=== PATIENT | male | born 1970 | race Two or more races ===

== ENCOUNTER 2017-12-14 19:30 | Emergency (ER) | payer OTHER ==
[~2017-12-14] VITALS: Ht 193 cm; Wt 99.8 kg
[2017-12-14] MEDS ORDERED: IV NS 0.9% 1,000 ML BAG IV ONE (20:00)
[2017-12-14 20:30] LABS: EOSINOPHILS % (AUTO) 0.3 % (0.0-6.0); LYMPHOCYTES # (AUTO) 0.8 /CMM (0.8-4.8); LYMPHOCYTES % (AUTO) 7.8 % (20.0-44.0)
[2017-12-14] MEDS ORDERED: LORAZEPAM INJ 2 MG/ML VIAL ONE (20:34)
[2017-12-14] MEDS: LORAZEPAM INJ 2 MG/ML VIAL IV ONE ×2 (20:35→20:50)
[2017-12-14 20:37] LABS: BASOPHILS # (AUTO) 0.1 /CMM (0.0-0.2); BASOPHILS % (AUTO) 0.9 % (0.0-2.0); HEMATOCRIT 52 % (39-51); HEMOGLOBIN 16.9 g/dL (13.5-17.5); MEAN CORPUSCULAR HGB CONC 32 g/dl (31.0-36.0); MEAN CORPUSCULAR VOLUME 80 fL (80-96); MONOCYTES # (AUTO) 0.5 /CMM (0.1-1.30); MONOCYTES % (AUTO) 4.8 % (2.0-12.0); NEUTROPHILS # (AUTO) 8.9 /CMM (1.8-8.9); NEUTROPHILS % (AUTO) 86.2 % (43.0-81.0); PLATELET COUNT (AUTO) 107 /CMM (150-450); RDW COEFFICIENT OF VARIATION 13.4 (11.5-15.0); WHITE BLOOD COUNT (AUTO) 10.3 K/uL (4.3-11.0)
[2017-12-14 20:41] LABS: CALCIUM, SERUM 8.3 mg/dL (8.5-10.1); CREATININE 1.2 mg/dL (0.6-1.3); POTASSIUM 4.7 mmol/L (3.5-5.1)
[2017-12-14 20:48] LABS: ALBUMIN 3.2 g/dL (3.4-5.0); BILIRUBIN,DIRECT 0.4 mg/dL (0.0-0.2); BILIRUBIN,TOTAL 1.1 mg/dL (0.2-1.0); TOTAL PROTEIN, SERUM 8.7 g/dL (6.4-8.2)
[2017-12-15] MEDS ORDERED: BACITRACIN ZINC OINT PACKET 1 EA PACKET TP ONE ×2 (00:30→00:33)
[2017-12-15] MEDS ORDERED: LORAZEPAM INJ 2 MG/ML VIAL IV ONE (00:30)
[2017-12-15] MEDS ORDERED: LORAZEPAM INJ 2 MG/ML VIAL ONE (00:44)
--- NOTE | 2017-12-15 02:32 | NUR ---
pt ok to discharge per kishore santiago. IV removed. Catheter intact and site benign. Pressure and 4x4 applied to site. No bleeding noted.Patient discharged to home in stable condition. Written and verbal after care instructions given. Patient verbalizes understanding of instruction.Patient is awake and alert to self, day, and place. pt ambulatory with a steady gait
[2017-12-15 02:34] VITALS: BP 143/88
== END 2017-12-15 02:34 | disposition home or self-care (01) ==
LOC: ER 19:32
DX: L03.115 Cellulitis of right lower limb (principal); K76.0 Fatty (change of) liver, not elsewhere classified; F10.129 Alcohol abuse with intoxication, unspecified; R56.9 Unspecified convulsions; R41.82 Altered mental status, unspecified; Y90.8 Blood alcohol level of 240 mg/100 ml or more
CPT/HCPCS: 36415; 70450; 76705; 80048; 80076; 85025; 85610; 93005; 96361; 96376; 96374; 99285; A4606; G0480; J2060 ×2; J7030; Z7610

== ENCOUNTER 2019-02-02 14:15 | Outpatient (CLI) | payer OTHER ==
[2019-02-02] MEDS ORDERED: DEXAMETHASONE SOD PHOSPHATE 10 MG/ML VIAL IJ ONE (16:00)
== END 2019-02-02 23:59 | disposition home or self-care (01) ==
LOC: WOU 14:15
PROVIDERS: ATTEND Podiatrist Foot & Ankle Surgery
DX: M65.872 Other synovitis and tenosynovitis, left ankle and foot (principal); M65.871 Other synovitis and tenosynovitis, right ankle and foot; E11.610 Type 2 diabetes mellitus with diabetic neuropathic arthropathy; Z79.84 Long term (current) use of oral hypoglycemic drugs; R60.0 Localized edema; R26.9 Unspecified abnormalities of gait and mobility
CPT/HCPCS: 20550 ×2; J1100; J3490; G0463

== ENCOUNTER 2019-03-02 13:20 | Outpatient (CLI) | payer OTHER ==
[2019-03-02] MEDS ORDERED: DEXAMETHASONE SOD PHOSPHATE 4 MG/ML VIAL IV ONE (15:30)
== END 2019-03-02 23:59 | disposition home or self-care (01) ==
LOC: WOU 13:20
PROVIDERS: ATTEND Podiatrist Foot & Ankle Surgery
PROC: 3E0U33Z Introduction of Anti-inflammatory into Joints, Percutaneous Approach (ICD-10-PCS; principal; 2019-03-02)
PROC: 3E0U3BZ Introduction of Anesthetic Agent into Joints, Percutaneous Approach (ICD-10-PCS; principal; 2019-03-02)
DX: E11.610 Type 2 diabetes mellitus with diabetic neuropathic arthropathy (principal); Z79.84 Long term (current) use of oral hypoglycemic drugs; M21.172 Varus deformity, not elsewhere classified, left ankle; M21.171 Varus deformity, not elsewhere classified, right ankle; R60.0 Localized edema; G47.30 Sleep apnea, unspecified
CPT/HCPCS: 20600; 82962; J1100; J3490

== ENCOUNTER 2019-03-29 13:15 | Outpatient (CLI) | payer OTHER ==
[2019-03-30] MEDS ORDERED: BUPR100T13 PO (13:10)
[2019-03-30] MEDS ORDERED: DOXA2TAB2 PO (13:10)
[2019-03-30] MEDS ORDERED: FLUT16SP (13:10)
[2019-03-30] MEDS ORDERED: ROFL500T PO (13:10)
[2019-03-30] MEDS ORDERED: AZEL205. (13:10)
[2019-03-30] MEDS ORDERED: HYDR-3980 PO (13:10)
[2019-03-30] MEDS ORDERED: D-AM10TA2 PO (13:10)
[2019-03-30] MEDS ORDERED: QUET25TA PO (13:10)
[2019-03-30] MEDS ORDERED: METF-442 PO (13:10)
[2019-03-30] MEDS ORDERED: TIOT4MIS2 INH (13:10)
[2019-03-30] MEDS ORDERED: FLUT1DIS3 INH (13:10)
[2019-03-30] MEDS ORDERED: MONT10TA22 PO (13:10)
[2019-03-30] MEDS ORDERED: ALEN10TA26 PO (13:10)
[2019-03-30] MEDS ORDERED: ALBU8.5H8 IH (13:10)
[2019-03-30] MEDS ORDERED: FERR325T24 PO (13:10)
[2019-03-30] MEDS ORDERED: TADA20TA43 PO (13:10)
[2019-03-30] MEDS ORDERED: LEVO25TA9 PO (13:10)
[2019-03-30] MEDS ORDERED: GABA-786 PO (13:10)
[2019-03-30] MEDS ORDERED: D AM PO (13:10)
[2019-03-30] MEDS ORDERED: ALUM35SO TD (13:10)
[2019-03-30] MEDS ORDERED: DEXL60CA3 PO (13:10)
[2019-03-30] MEDS ORDERED: CARB1TAB39 PO (13:10)
== END 2019-03-29 23:59 | disposition home or self-care (01) ==
LOC: WOU 13:15
PROVIDERS: ATTEND Podiatrist Foot & Ankle Surgery
DX: E11.610 Type 2 diabetes mellitus with diabetic neuropathic arthropathy (principal); E11.42 Type 2 diabetes mellitus with diabetic polyneuropathy; Z79.84 Long term (current) use of oral hypoglycemic drugs; L89.896 Pressure-induced deep tissue damage of other site; L03.115 Cellulitis of right lower limb; Z79.899 Other long term (current) drug therapy; G47.30 Sleep apnea, unspecified
CPT/HCPCS: G0463

== ENCOUNTER 2019-03-30 11:27 | Inpatient (IN) | payer OTHER ==
[~2019-03-30] VITALS: Ht 190.5 cm; Wt 124.7 kg
--- NOTE | 2019-03-30 11:30 | NUR ---
sent by PMD due to right foot cellulitis/abscess, pt awake, alert, -sob, nad noted, vss, pending md naqvi
[2019-03-30] MEDS ORDERED: IV NS 0.9% 500 ML BAG IV ONE (12:00)
--- NOTE | 2019-03-30 13:04 | NUR ---
CALLED [facility], PAGED HARJINDER
[2019-03-30] MEDS ORDERED: BUPR100T13 PO (13:10)
[2019-03-30] MEDS ORDERED: ROFL500T PO (13:10)
[2019-03-30] MEDS ORDERED: LEVO25TA9 PO (13:10)
[2019-03-30] MEDS ORDERED: MONT10TA22 PO (13:10)
[2019-03-30] MEDS ORDERED: HYDR-3980 PO (13:10)
[2019-03-30] MEDS ORDERED: D-AM10TA2 PO (13:10)
[2019-03-30] MEDS ORDERED: CARB1TAB39 PO (13:10)
[2019-03-30] MEDS ORDERED: QUET25TA PO (13:10)
[2019-03-30] MEDS ORDERED: D AM PO (13:10)
[2019-03-30] MEDS ORDERED: DOXA2TAB2 PO (13:10)
[2019-03-30] MEDS ORDERED: ALEN10TA26 PO (13:10)
[2019-03-30] MEDS ORDERED: TADA20TA43 PO (13:10)
[2019-03-30] MEDS ORDERED: FLUT1DIS3 INH (13:10)
[2019-03-30] MEDS ORDERED: ALUM35SO TD (13:10)
[2019-03-30] MEDS ORDERED: DEXL60CA3 PO (13:10)
[2019-03-30] MEDS ORDERED: GABA-786 PO (13:10)
[2019-03-30] MEDS ORDERED: FERR325T24 PO (13:10)
[2019-03-30] MEDS ORDERED: FLUT16SP (13:10)
[2019-03-30] MEDS ORDERED: ALBU8.5H8 IH (13:10)
[2019-03-30] MEDS ORDERED: TIOT4MIS2 INH (13:10)
[2019-03-30] MEDS ORDERED: METF-442 PO (13:10)
[2019-03-30] MEDS ORDERED: AZEL205. (13:10)
[2019-03-30 13:20] LABS: BASOPHILS # (AUTO) 0.1 /CMM (0.0-0.2); BASOPHILS % (AUTO) 1.2 % (0.0-2.0); EOSINOPHILS % (AUTO) 1.3 % (0.0-6.0); HEMATOCRIT 51 % (39-51); HEMOGLOBIN 16.8 g/dL (13.5-17.5); LYMPHOCYTES # (AUTO) 1.2 /CMM (0.8-4.8); LYMPHOCYTES % (AUTO) 14.8 % (20.0-44.0); MEAN CORPUSCULAR HGB CONC 33 g/dl (31.0-36.0); MEAN CORPUSCULAR VOLUME 84 fL (80-96); MONOCYTES # (AUTO) 0.6 /CMM (0.1-1.30); NEUTROPHILS # (AUTO) 6.2 /CMM (1.8-8.9); NEUTROPHILS % (AUTO) 75.7 % (43.0-81.0); PLATELET COUNT (AUTO) 195 /CMM (150-450); RED BLOOD CELL COUNT(AUTO) 6.11 MIL/uL (4.5-6.0); WHITE BLOOD COUNT (AUTO) 8.1 K/uL (4.3-11.0)
[2019-03-30 13:38] LABS: CALCIUM, SERUM 9.2 mg/dL (8.5-10.1); CREATININE 1.4 mg/dL (0.6-1.3)
[2019-03-30 13:40] LABS: POTASSIUM 4.5 mmol/L (3.5-5.1)
[2019-03-30 13:42] LABS: ALBUMIN 3.9 g/dL (3.4-5.0); BILIRUBIN,DIRECT 0.1 mg/dL (0.0-0.2); BILIRUBIN,TOTAL 0.4 mg/dL (0.2-1.0); TOTAL PROTEIN, SERUM 7.1 g/dL (6.4-8.2)
--- NOTE | 2019-03-30 14:35 | NUR ---
report given herbie erwin transported to 3rd floor
--- NOTE | 2019-03-30 14:40 | NUR ---
RECEIEVED PATIENT FROM ER VIA GURNEY. PATIENT IS A/OX4, ABLE TO MAKE NEEDS KNOWN. AMBULATORY. NOT IN ANY FORM OF DISTRESS. NO SOB. DENIED PAIN OR DISCOMFORT AT THIS TIME. IV ACCESS INTACT AND PATENT. BELONGINGS CHECKED BY ZACK VALERO AND NOTED IT ON THE CHECKLIST. SITUATED PATIENT IN THE ROOM. INSTRUCTED ON HOW TO USE THE CALL LIGHT AND CALL FOR ASSISTANCE. REFUSED TO CHANGE TO HOSPITAL GOWN AND REFUSED SKIN ASSESSMENT AT THIS TIME. PER PATIENT, "I REALLY DONT HAVE ANY OPEN WOUNDS, I CAME HERE BECAUSE THE WOUND CLINIC TOLD ME TO GO HERE TO CHECK IF MY FEET HAS AN INFECTION.", " YOU CAN CHECK IT LATER WHEN I'M READY TO CHANGE TO HOSPITAL GOWN.". KEPT PATIENT SAFE AND COMFORTABLE. BED IN LOW/LOCKED PSOITION, SIDERAILS UPX2,CALL LIGHT IN REACH. WILL CONT TO MONIOTR ACCORDINGLY
[2019-03-30] MEDS ORDERED: DEXTROSE 50%-WATER 50 ML DISP.SYRIN IV PRN (15:30)
[2019-03-30] MEDS ORDERED: TADALAFIL 20 MG PO PRN (15:30)
[2019-03-30] MEDS ORDERED: *INSULIN REGULAR(HUMULIN R)HUM 100 UNIT/ML VIAL SQ PRN (15:30)
[2019-03-30] MEDS ORDERED: FLUTICASONE PROPIONATE 16 GM BOTTLE NS PRN (15:30)
[2019-03-30] MEDS ORDERED: HYDROCODONE/APAP 10/325MG 1 EA TABLET PO PRN (15:30)
[2019-03-30 15:59] LABS: MAGNESIUM 1.7 mg/dL (1.8-2.4); PHOSPHORUS 2.6 mg/dL (2.5-4.9)
[2019-03-30 16:00] VITALS: BP 160/111
--- NOTE | 2019-03-30 16:00 | NUR ---
rn notes patient asking for 2 sandwiches. explained to patient that he is on diabetic diet and food is limited for [facility] diet. patient was furious and was thinking of leaving AMA because of the limitation of food. explained to the patient that i have to ask the doctor if he can give you a regular diet. patient calmed down and said "ok please tell him". will notify doctor ashish. 1 egg sandwich and a diet soda was given.
--- NOTE | 2019-03-30 16:42 | NUR ---
rn notes Dr hinojosa on the unit and address patient's request to have a regular diet. Per Dr Hinojosa, "yeah just give him regular diet, he's a big melody.". Orders noted and will carry out.
[2019-03-30] MEDS ORDERED: AZELASTINE NASAL SPRAY 30 ML BOTTLE NS PRN (17:00)
[2019-03-30] MEDS: buPROPion 100 MG TABLET PO SCH (17:16)
[2019-03-30] MEDS: CARBIDOPA/LEVA CR 25/100MG 1 TAB.SA PO SCH (17:17)
[2019-03-30] MEDS: MONTELUKAST SODIUM (10MG) 10 MG TABLET PO SCH (17:17)
[2019-03-30] MEDS: BLOOD SUGAR DIAGNOSTIC 1 EACH STRIP VI SCH ×2 (17:18→22:09)
[2019-03-30] MEDS ORDERED: ALBUTEROL FS 2.5 MG/0.5 ML VIAL.NEB NEB PRN (19:30)
--- NOTE | 2019-03-30 19:30 | NUR ---
RN CLOSING NOTES PATIENT IN STABLE CONDITION. ALL NEEDS ATTENDED AND PROVIDED. ALL DUE MEDS GIVEN ORDERED. KEPT PATIENT SAFE AND COMFORTABLE. BED IN LOW/LOCKED POSITION, SIDERAILS UPX2,C ALL LIGHT IN REACH. ENDORSED TO NIGHT RN FOR PONCHO.
--- NOTE | 2019-03-30 19:45 | NUR ---
MS RN OPENING NOTES RECEIVED PATIENT FROM MORNING SHIFT ALERT AND ORIENTED X 3. VERBALLY RESPONSIVE AND ABLE TO FOLLOW DIRECTIONS. BREATHING REGULAR AND UNLABORED ON ROOM AIR. RIGHT FOREARM G20 IV LINE PATENT AND INTACT, FLUSHING WELL WITH NO BLEEDING OR S/S OF INFECTION/INFILTRATION NOTED. REFUSED BODY ASSESSMENT FOR NOW PER HIM HE'LL CHANGE FOR A HOSPITAL GOWN LATER. NO COMPLAINTS OF PAIN/DISCOMFORT REPORTED OF THE TIME. BED LOW AND LOCKED ON SEMI FOWLERS POSITION. CALL LIGHT IN REACH. WILL CONTINUE TO MONITOR.
[2019-03-30 20:00] VITALS: BP 151/99
[2019-03-30] MEDS ORDERED: CLINDAMYCIN 600 MG in IV NS 0.9% 50 ML IV SCH (21:00)
[2019-03-30] MEDS: CLINDAMYCIN 600 MG in IV D5W 50 ML IV SCH (21:01)
[2019-03-30] MEDS: QUETIAPINE FUMARATE 25 MG TABLET PO PRN (21:58)
[2019-03-30 22:00] VITALS: BP 151/99
--- NOTE | 2019-03-30 23:22 | NUR ---
RT NOTE PATIENT ATTEMPTED TO WEAR CPAP. PATIENT VERBALLY REFUSING TO KEEP CPAP ON. PRIMARY NURSE NOTIFIED AND AWARE. NO SIGNS OF RESPIRATORY DISTRESS NOTED. SPO2 96%.
--- NOTE | 2019-03-30 23:30 | NUR ---
MS RN NOTES REFUSED CPAP TREATMENT PER THE PATIENT ITS UNCOMFORTABLE. RISK AND BENEFITS EXPLAINED. PUT ON OXYGEN AT 2L/MIN VIA NASAL CANNULA INSTEAD. LATEST SPO2 96%. WILL CONTINUE TO MONITOR.
[2019-03-31] MEDS: HYDROCODONE/APAP 10/325MG 1 EA TABLET PO PRN ×3 (01:50→18:11)
--- NOTE | 2019-03-31 02:00 | NUR ---
MS RN NOTES COMPLAINED OF 7/10 RIGHT FOOT PAIN. NORCO 10/325 TAB GIVEN BY MOUTH. NON-PHARMACOLOGICAL INTERVENTIONS PROVIDED. VITAL SIGNS WNL. WILL CONTINUE TO MONITOR.
[2019-03-31] MEDS: CLINDAMYCIN 600 MG in IV D5W 50 ML IV SCH ×3 (04:54→20:59)
--- NOTE | 2019-03-31 06:40 | NUR ---
MS RN CLOSING NOTES PATIENT IN BED ALERT AND ORIENTED X 3. VERBALLY RESPONSIVE AND ABLE TO FOLLOW DIRECTIONS. BREATHING REGULAR AND UNLABORED ON OXYGEN AT 2L/min VIA NASAL CANNULA. RIGHT FOREARM G20 IV LINE PATENT AND FLUSHING WELL. NO COMPLAINTS OF PAIN/DISCOMFORT REPORTED OF THE TIME. BED LOW AND LOCKED ON SEMI FOWLERS POSITION. CALL LIGHT IN REACH. WILL ENDORSE TO MORNING SHIFT FOR PONCHO.
[2019-03-31] MEDS: BLOOD SUGAR DIAGNOSTIC 1 EACH STRIP VI SCH ×4 (07:01→22:17)
[2019-03-31] MEDS: INSULIN REGULAR, HUMAN 100 UNIT/ML 3 ML VIAL SQ PRN (07:02)
--- NOTE | 2019-03-31 07:35 | NUR ---
MS/RN NOTE THE PATIENT IS RECEIVED IN BED. ALERT AND ORIENTED X4. DENIES PAIN. IN ROOM AIR AND DENIES SOB. RESPIRATION REGULAR AND UNLABORED. THE PATIENT IN NO APPARENT DISTRESS. RIGHT FOREARM G 20 PATENT AND SALINE LOCKED. BED LOW AND LOCKED. SIDE RAILS UP X2. CALL LIGHT WITHIN REACH. WILL CONTINUE TO MONITOR.
[2019-03-31 08:00] VITALS: BP_SYST 125; BP_SYST 158; BP_DIAS 102; BP_DIAS 104
[2019-03-31] MEDS: FERROUS SULFATE (325 MG) 325 MG/TAB TABLET PO SCH (08:46)
[2019-03-31] MEDS: buPROPion 100 MG TABLET PO SCH ×2 (08:47→18:10)
[2019-03-31] MEDS: LEVOTHYROXINE SODIUM 25 MCG TABLET PO SCH (08:47)
[2019-03-31] MEDS: PANTOPRAZOLE 40 MG TABLET.DR PO SCH (08:47)
[2019-03-31] MEDS: FLUTICASONE/VILANTEROL 1 EACH BLST.W.DEV IH SCH (08:48)
[2019-03-31] MEDS: DOXAZOSIN MESYLATE (1 MG) 1 MG TABLET PO SCH (08:50)
[2019-03-31] MEDS: ALENDRONATE 10 MG TABLET PO SCH (08:50)
[2019-03-31] MEDS ORDERED: DEXTROAMPHETAMINE SULFATE 20 MG PO SCH (09:00)
[2019-03-31] MEDS: POVIDONE-IODINE OINT 28.4 GM TUBE TP SCH ×2 (09:19→17:00)
[2019-03-31] MEDS ORDERED: DEXTROAMPHETAMINE SULFATE 15 MG PO PRN (12:00)
[2019-03-31] MEDS ORDERED: ROFLUMILAST PO SCH (12:00)
--- NOTE | 2019-03-31 13:52 | NUR ---
MS/RN NOTE PER PATIENT HE WILL PROVIDED ALL HIS HOME MEDICATIONS TOMORROW. THE PHARMACY IS MADE AWARE.
[2019-03-31 16:00] VITALS: BP_SYST 123; BP_SYST 125; BP_DIAS 104; BP_DIAS 87
[2019-03-31 17:00] VITALS: BP 123/87
[2019-03-31] MEDS: CARBIDOPA/LEVA CR 25/100MG 1 TAB.SA PO SCH (18:10)
[2019-03-31] MEDS: MONTELUKAST SODIUM (10MG) 10 MG TABLET PO SCH (18:10)
--- NOTE | 2019-03-31 18:29 | NUR ---
MS/RN NOTE DR GRANDE IS MADE AWARE OF PATIENT COMPLAINING OF HEADACHE AND ORDER FOR IBUPROFEN 600 MG PO Q6HR PRN IS OBTAINED. THE ORDER IS READ BACK, VERIFIED. NOTED AND CARRIED OUT.
[2019-03-31] MEDS ORDERED: IBUPROFEN 600 MG TABLET PO PRN (18:30)
--- NOTE | 2019-03-31 18:30 | NUR ---
MS/RN NOTE THE PATIENT IS ALERT AND ORIENTED X4. IN ROOM AIR AND SATURATION IS AT 98%. RESPIRATION REGULAR AND UNLABORED. DENIES SOB. THE PATIENT COMPLAINS OF HEADACHE 06/23. WAITING FOR PHARMACY TO VERIFY THE ORDER OF IBUPROFEN TO ADMINISTER. RFA G 20 PATENT AND SALINE LOCKED. BED LOW AND LOCKED. SIDE RAILS UP X2. CALL LIGHT WITHIN REACH. WILL ENDORSE TO NIGHTS SHIFT.
--- NOTE | 2019-03-31 18:48 | NUR ---
MS/RN NOTE IBUPROFEN 600 MG PO IS GIVEN DUE TO COMPLAINING OF HEADACHE 06/14. WILL ENDORSE TO MYRA DUFF.
--- NOTE | 2019-03-31 19:58 | NUR ---
RN NOTES RECEIVED PATIENT AWAKE ALERT ORIENTED X4, DENIES ANY PAIN OR DISCOMFORT AT THIS TIME. BREATHING EVEN AND UNLABORED, NO SIGNS OF ACUTE DISTRESS NOTED, IV ACCESS INTACT AND PATENT, SAFETY MEASURES WITHIN EASY REACH, WILL CONTINUE TO MONITOR ACCORDINGLY.
[2019-03-31 20:00] VITALS: BP 135/92
[2019-03-31] MEDS: IPRATROPIUM NEB FS 0.5 MG/2.5 ML AMPUL.NEB NEB SCH (20:25)
[2019-03-31 20:40] VITALS: BP 135/92
--- NOTE | 2019-03-31 20:42 | NUR ---
RT NOTE POST TX, PATIENT REFUSING TO TRY TO USE CPAP TONIGHT. PRIMARY NURSE NOTIFIED AND AWARE. WILL CONTINUE TO MONITOR PATIENT.
[2019-03-31] MEDS: QUETIAPINE FUMARATE 25 MG TABLET PO PRN (22:05)
--- NOTE | 2019-03-31 22:25 | NUR ---
RN NOTES PATIENT COMPLAINED OF HEARTBURN, CALLED AND INFORMED EPIC HOSIERY LOOPER FOR KRISTEN CABALLERO. AWAITING FOR RETURN CALL.
--- NOTE | 2019-03-31 22:30 | NUR ---
RN NOTES RECEIVED ORDER FROM KRISTEN CABALLERO, TO GIVE PROTONIX 40 MG TAB ONCE NOW. ORDERS NOTED AND CARRIED OUT.
--- NOTE | 2019-03-31 22:47 | NUR ---
Met with patient,states he lives alone in [place]. He is ambulatory and independent with adl's. 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 Pcp is at [facility]. He plan to return home once discharge. Addendum: 03/31/19 at 2247 by MARK LINDSAY RN Amended: Links added.
[2019-03-31] MEDS ORDERED: PANTOPRAZOLE 40 MG TABLET.DR PO SCH (23:00)
[2019-04-01] MEDS: IPRATROPIUM NEB FS 0.5 MG/2.5 ML AMPUL.NEB NEB SCH ×3 (01:30→13:36)
[2019-04-01] MEDS: CLINDAMYCIN 600 MG in IV D5W 50 ML IV SCH ×2 (05:16→12:36)
--- NOTE | 2019-04-01 07:17 | NUR ---
RN NOTES ALL NEEDS ATTENDED AND MET, ABLE TO REST AND SLEPT AT INTERVALS, ENDORSED TO AM NURSE FOR CONTINUITY OF CARE.
[2019-04-01] MEDS: BLOOD SUGAR DIAGNOSTIC 1 EACH STRIP VI SCH ×2 (07:30→12:22)
[2019-04-01 08:00] VITALS: BP 150/86
--- NOTE | 2019-04-01 08:00 | NUR ---
m/s geochemical laboratory technician: initial assessment received pt in bed awake, a/ox4. no c/o pain or any discomfort. pt has kostas charcot foot. pt able to ambulate. no distress noted. will continue to monitor.
[2019-04-01] MEDS: ALENDRONATE 10 MG TABLET PO SCH (08:37)
[2019-04-01] MEDS: buPROPion 100 MG TABLET PO SCH (08:37)
[2019-04-01] MEDS: PANTOPRAZOLE 40 MG TABLET.DR PO SCH (08:38)
[2019-04-01] MEDS: LEVOTHYROXINE SODIUM 25 MCG TABLET PO SCH (08:38)
[2019-04-01] MEDS: FLUTICASONE/VILANTEROL 1 EACH BLST.W.DEV IH SCH (08:38)
[2019-04-01] MEDS: DOXAZOSIN MESYLATE (1 MG) 1 MG TABLET PO SCH (08:38)
[2019-04-01] MEDS: FERROUS SULFATE (325 MG) 325 MG/TAB TABLET PO SCH (08:38)
[2019-04-01] MEDS: POVIDONE-IODINE OINT 28.4 GM TUBE TP SCH (08:42)
--- NOTE | 2019-04-01 10:00 | NUR ---
m/s cellular equipment repairer: notes up in chair at this time. no distress noted. will monitor.
[2019-04-01] MEDS: INSULIN REGULAR, HUMAN 100 UNIT/ML 3 ML VIAL SQ PRN (11:47)
--- NOTE | 2019-04-01 11:47 | NUR ---
m/s film editor supervisor: notes pt refused insulin coverage for [id number], pt wants his metformin. med was held when admitted. left message to dr. hinojosa re: metformin. pt anxiously wants to go home. left message to dr. nair and also pt keeps calling him as stated. awaiting for dpm recommendation. instructed to call for assistance.
--- NOTE | 2019-04-01 14:30 | NUR ---
m/s preschool special education teacher: notes receive order from dr. hinojosa to discharge pt with Discharge instructions: Okay to discharge after podiatry visit if cleared., Cancel discharge if further podiatry treatment is indicated as inpatient. order acknowledged.
--- NOTE | 2019-04-01 15:50 | NUR ---
m/s energy auditor: senior account executive follow up dr. terrell at bedside for 20-30 mins to discuss plan of care. pt has to be on a wheelchair mostly for a week. pt has no be non weight bearing most of the time to ble, pt verbalized understanding. prescription for wheelchair given to [place]ington (case management). pt made aware, but doesn't want to wait for the answer, stated, "i will deal with it tomorrow, i have across the street to go to, i need to go." Addendum: 04/01/19 at 1619 by SUZANNE TRUONG LVN pt cleared by senior account executive (dr. terrell) and to f/u with him in office.
[2019-04-01 16:00] VITALS: BP 152/90
--- NOTE | 2019-04-01 16:10 | NUR ---
m/s information security architect: notes discharge instructions given to pt and verbalized understanding. h/l removed with tip intact. pt aware of limitations and will follow up with trades helper in one week. wellington (chapis) notified and made aware that pt doesn't want to stay for the wheelchair and wants it delivered to his house once approved. pt aware.
--- NOTE | 2019-04-01 16:17 | NUR ---
m/s real estate underwriter: notes discharge home via [employer] with all valuables in stable condition.
[2019-04-01] MEDS ORDERED: METFORMIN 500 MG TABLET PO SCH (17:00)
== END 2019-04-01 16:15 | disposition home or self-care (01) | DRG 74 ==
LOC: ER 11:32 → MED 14:20
PROVIDERS: ADMIT Internal Medicine; ATTEND Internal Medicine
DX: E11.610 Type 2 diabetes mellitus with diabetic neuropathic arthropathy (principal); L03.115 Cellulitis of right lower limb; L02.611 Cutaneous abscess of right foot; E11.621 Type 2 diabetes mellitus with foot ulcer; L97.519 Non-pressure chronic ulcer of other part of right foot with unspecified severity; M19.90 Unspecified osteoarthritis, unspecified site; E11.42 Type 2 diabetes mellitus with diabetic polyneuropathy; F32.9 Major depressive disorder, single episode, unspecified; F41.9 Anxiety disorder, unspecified; K21.9 Gastro-esophageal reflux disease without esophagitis; Z79.51 Long term (current) use of inhaled steroids; L84 Corns and callosities; J45.909 Unspecified asthma, uncomplicated; G40.909 Epilepsy, unspecified, not intractable, without status epilepticus; G25.81 Restless legs syndrome; Z88.0 Allergy status to penicillin; Z79.84 Long term (current) use of oral hypoglycemic drugs
CPT/HCPCS: 36415; 73610-TC; 73630-TC; 73718-TC; 73721-TC; 80048-TC; 80076-TC; 82962-TC; 83690-TC; 83735-TC; 84100-TC; 85025-TC; 85652-TC; 85730-TC; 86140-TC; 87081-TC; A4216; G0378; J1815; J3490; J7050; J7060

== ENCOUNTER 2019-04-05 10:45 | Outpatient (CLI) | payer OTHER ==
[~2019-04-05 10:45] MED LIST: ALBU8.5H8 IH; ALEN10TA26 PO; ALUM35SO TD; AZEL205.; BUPR100T13 PO; CARB1TAB39 PO; D AM PO; D-AM10TA2 PO; DEXL60CA3 PO; DOXA2TAB2 PO; FERR325T24 PO; FLUT16SP; FLUT1DIS3 INH; GABA-786 PO; HYDR-3980 PO; LEVO25TA9 PO; METF-442 PO; MONT10TA22 PO; QUET25TA PO; ROFL500T PO; TADA20TA43 PO; TIOT4MIS2 INH
== END 2019-04-05 23:59 | disposition home or self-care (01) ==
LOC: WOU 10:45
PROVIDERS: ATTEND Podiatrist Foot & Ankle Surgery
DX: E11.610 Type 2 diabetes mellitus with diabetic neuropathic arthropathy (principal); Z79.84 Long term (current) use of oral hypoglycemic drugs; Z79.899 Other long term (current) drug therapy
CPT/HCPCS: 82962-TC; G0463

== ENCOUNTER 2019-04-15 09:00 | Outpatient (CLI) | payer OTHER ==
[2019-04-15] MEDS ORDERED: ETHYL CHLORIDE SPRAY 1 EA BOTTLE TP ONE (10:00)
[2019-04-15] MEDS ORDERED: BUPIVACAINE 0.5 % PF 150 MG/30 ML VIAL IJ ONE (10:00)
[2019-04-15] MEDS ORDERED: DEXAMETHASONE SOD PHOSPHATE 4 MG/ML VIAL MC ONE (10:00)
== END 2019-04-15 23:59 | disposition home or self-care (01) ==
LOC: WOU 09:00
PROVIDERS: ATTEND Podiatrist Foot & Ankle Surgery
DX: E11.610 Type 2 diabetes mellitus with diabetic neuropathic arthropathy (principal); E11.42 Type 2 diabetes mellitus with diabetic polyneuropathy; M62.838 Other muscle spasm; M79.672 Pain in left foot; M79.671 Pain in right foot; Q66.82 Congenital vertical talus deformity, left foot; Q66.81 Congenital vertical talus deformity, right foot; R26.9 Unspecified abnormalities of gait and mobility
CPT/HCPCS: 20550; 20600; 82962; 87070 ×2; 87075 ×2; J1100; J3490

== ENCOUNTER 2019-04-22 10:30 | Outpatient (CLI) | payer OTHER | END 2019-04-22 23:59 | disposition home or self-care (01) | LOC: WOU 10:30 | PROVIDERS: ATTEND Podiatrist Foot & Ankle Surgery | DX: E11.610 Type 2 diabetes mellitus with diabetic neuropathic arthropathy (principal); E11.42 Type 2 diabetes mellitus with diabetic polyneuropathy; Z91.19 Patient's noncompliance with other medical treatment and regimen | CPT/HCPCS: G0463 ==